=== PATIENT | female | born 1965 | race Caucasian/White ===

== ENCOUNTER 2016-10-04 18:50 | Emergency (ER) | payer BC ==
[2015-08-16 08:29] VITALS: BMI 25.5
[~2016-10-04 18:50] MED LIST: CYMBALTA30 MG PO; LOPRESSOR25 MG PO; OXYCONTIN40 MG PO; SOMA350 MG PO; VITAMIN D31000 UNIT PO; XANAX0.25 MG PO; ZANAFLEX4 MG PO
[2016-10-04 19:48] LABS: APPEARANCE CLEAR (CLEAR); BILIRUBIN NEGATIVE (NEGATIVE); COLOR YELLOW (YELLOW); GLUCOSE 50 mg/dL (NEGATIVE); KETONE NEGATIVE (NEGATIVE); LEUKOCYTE ESTERASE NEGATIVE (NEGATIVE); NITRITE NEGATIVE (NEGATIVE); PROTEIN NEGATIVE (NEGATIVE); UROBILINOGEN NORMAL (NORMAL)
[2016-10-04 19:50] LABS: BASOPHILS 0.1 % (0-2); EOSINOPHILS 0 % (0-7); HEMATOCRIT 41.2 % (36.0-48.0); HEMOGLOBIN 13.5 g/dL (12-16); IMMATURE GRANULOCYTES 0.3 % (0-5); LYMPHOCYTES 6.9 % (15-50); MCH 28.9 pg (26.0-34.0); MCHC 32.8 g/dL (31.0-37.0); MCV 88.2 fL (80.0-100.0); MEAN PLATELET VOLUME 12.4 fL (7.4-10.4); MONOCYTES 3.5 % (2-11); NEUTROPHILS 89.2 % (40-80); PLATELET COUNT 172 10x3/uL (130-400); RBC 4.67 10x6/uL (4.00-5.40); WBC 9.4 10x3/uL (4.8-10.8)
[2016-10-04 20:05] LABS: ALBUMIN 3.5 g/dL (3.4-5.0); ALKALINE PHOSPHATASE 100 U/L (46-116); ALT (SGPT) 16 U/L (10-68); CALC OSMOLALITY 290 mosm/kg (275-300); CALCIUM 9.2 mg/dL (8.5-10.1); CARBON DIOXIDE 26.7 mmol/L (21.0-32.0); CHLORIDE - SERUM 107 mmol/L (98-107); CREATININE - SERUM 0.8 mg/dL (0.6-1.3); POTASSIUM - SERUM 4.3 mmol/L (3.5-5.1); SODIUM 144 mmol/L (136-145); UREA NITROGEN 12 mg/dL (7-18); eGFR NON AFRICAN AMERICAN 80 mL/min (90-120)
[2016-10-04 20:06] LABS: GLUCOSE 169 mg/dL (74-106)
== END 2016-10-04 22:42 | disposition home or self-care (01) ==
LOC: D.ER 18:50
PROVIDERS: Emergency Medicine
DX: K59.00 Constipation, unspecified (principal); M79.7 Fibromyalgia; F17.200 Nicotine dependence, unspecified, uncomplicated

== ENCOUNTER → 2016-11-27 11:03 | Outpatient (CLI) | payer BC ==
[2015-08-16 08:29] VITALS: BMI 25.5
== END | disposition home or self-care (01) ==
LOC: D.US 11:03
DX: R31.9 Hematuria, unspecified (principal)

== ENCOUNTER → 2016-12-20 11:54 | Outpatient (CLI) | payer BC ==
[2015-08-16 08:29] VITALS: BMI 25.5
== END ==
LOC: D.LABREF 11:54
DX: R31.9 Hematuria, unspecified (principal)

== ENCOUNTER → 2017-01-07 16:13 | Outpatient (CLI) | payer BC ==
[2015-08-16 08:29] VITALS: BMI 25.5
== END | disposition home or self-care (01) ==
LOC: D.MRI 01-02 08:30
DX: R20.0 Anesthesia of skin (principal); R20.2 Paresthesia of skin; R26.2 Difficulty in walking, not elsewhere classified

== ENCOUNTER 2017-01-24 05:35 | Day surgery (SDC) | payer BC ==
[2017-01-23 14:59] LABS: HEMATOCRIT 41.6 % (36.0-48.0); HEMOGLOBIN 13.8 g/dL (12-16); MCH 29.5 pg (26.0-34.0); MCHC 33.2 g/dL (31.0-37.0); MCV 88.9 fL (80.0-100.0); MEAN PLATELET VOLUME 11.4 fL (7.4-10.4); RBC 4.68 10x6/uL (4.00-5.40); RDW 13.4 % (11.5-14.5); WBC 6.2 10x3/uL (4.8-10.8)
[~2017-01-24] VITALS: Ht 165.1 cm; Wt 59.9 kg
[~2017-01-24 05:35] MED LIST changes: -LOPRESSOR25 MG PO; +METOPROLOL TART50 MG PO; +NEXIUM40 MG PO; +RELAFEN750 MG PO; +VITAMIN B-1000 MCG/M IM; -ZANAFLEX4 MG PO; +ZANAFLEX6 MG PO
[2017-01-24 08:29] VITALS: BP 101/59; Ht 165.1 cm; Wt 59.9 kg
--- NOTE | 2017-01-24 15:31 | OP ---
PATIENT NAME: MAXIMINO DUGAN MEDICAL RECORD: [id number] :63 LOCATION:[facility] ADMISSION DATE: SURGEON: MERISSA LOPEZ MD DATE OF OPERATION: 01/24/2017 SURGEON: Merissa Lopez MD. ANESTHESIA: MAC by Rosie Laboy CRNA. PREOPERATIVE DIAGNOSES: Interstitial cystitis, fox hematuria. POSTOPERATIVE DIAGNOSES: Interstitial cystitis, fox hematuria. PROCEDURES: Cystoscopy, intravesical Rimso 50% times 50 mL instillation. FINDINGS: Single ureteral orifices bilaterally. No bladder tumors. Diffuse bladder inflammation with glomerulations. ESTIMATED BLOOD LOSS: None. CLINICAL HISTORY: This is a 51-year-old female, who is a smoker. She has had episodes of gross hematuria as well as suprapubic tenderness and pelvic and diffuse body pain, nocturia and dysuria. Urine cultures have shown no growth. She had a recent abdominal and pelvic CT as well as renal ultrasound, which shows normal kidneys. Urine cytology is negative. She comes now to have cystoscopy performed and the bladder inflammation is seen. We will give intravesical Rimso, which is an anti-inflammatory. SHE IS ALLERGIC TO LYRICA, MS CONTIN, NEURONTIN, SAVELLA AND SULFA. She was given Ancef IV business integration manager to the OR. DESCRIPTION OF PROCEDURE: The patient was given IV sedation. She was placed into dorsal lithotomy position and prepped and draped. A 17-Malay cystoscope with 30-degree lens was used for visualization. Cystoscopic findings are as outlined above. The bladder was then emptied through the cystoscope sheath. A 12-Malay red rubber catheter was then inserted into the bladder and through the red rubber catheter, the 50 mL of Rimso solution was instilled into the bladder. The catheter was then removed, leaving the solution in the bladder. The patient will hold the Rimso solution for at least 15 minutes. She will then be able to go home. I will see her next week in the office for her second treatment of Rimso. TRANSINT:[id number] Voice Confirmation ID: [id number] DOCUMENT ID: [id number] MERISSA LOPEZ MD at 1531 CC: [id number] DICTATION DATE: 01/24/17 1404 STAFF COMMAND AND CONTROL OFFICER: 01/24/17 1503 [address] [place] [id number]
--- NOTE | 2017-01-24 16:30 | NUR ---
NOTIFIED DR RIVERA OF DECREASED BP. TO BEDSIDE
--- NOTE | 2017-01-24 17:00 | NUR ---
DISCHARGE INSTRUCTIONS REVIEWED, VERBALIZED UNDERSTANDING. IV DC'D WITH TIP INTACT, NO REDNESS OR SWELLING NOTED TO SITE. DC'D VIA WC WITH FAMILY AND STAFF
== END 2017-01-24 17:00 | disposition home or self-care (01) ==
LOC: D.OPS 05:35 → D.PAN 09:30 → D.OPS 09:30 → D.PAN 11:20 → D.OPS 17:00
PROVIDERS: Anesthesiology
DX: R31.0 Gross hematuria (principal); N30.10 Interstitial cystitis (chronic) without hematuria; F17.200 Nicotine dependence, unspecified, uncomplicated; I10 Essential (primary) hypertension; K21.9 Gastro-esophageal reflux disease without esophagitis; I49.9 Cardiac arrhythmia, unspecified; Z01.812 Encounter for preprocedural laboratory examination

== ENCOUNTER → 2017-01-30 17:48 | Outpatient (CLI) | payer BC ==
[2017-01-24 08:29] VITALS: BMI 22.0
== END | disposition home or self-care (01) ==
LOC: D.LAB 17:48
DX: N39.0 Urinary tract infection, site not specified (principal)

== ENCOUNTER → 2017-04-23 13:00 | Outpatient (CLI) | payer BC ==
[2017-01-24 08:29] VITALS: BMI 22.0
== END | disposition home or self-care (01) ==
LOC: D.MAMMO 13:00
DX: Z12.31 Encounter for screening mammogram for malignant neoplasm of breast (principal)

== ENCOUNTER → 2017-07-03 09:53 | Outpatient (CLI) | payer BC ==
[2017-01-24 08:29] VITALS: BMI 22.0
== END | disposition home or self-care (01) ==
LOC: D.MRI 09:53
DX: M54.16 Radiculopathy, lumbar region (principal)

== ENCOUNTER → 2018-01-01 07:58 | Outpatient (CLI) | payer BC ==
[2017-01-24 08:29] VITALS: BMI 22.0
== END | disposition home or self-care (01) ==
LOC: D.MRI 07:58
DX: M54.2 Cervicalgia (principal)

== ENCOUNTER → 2018-12-02 07:38 | Outpatient (CLI) | payer BC ==
[2017-01-24 08:29] VITALS: BMI 22.0
== END | disposition home or self-care (01) ==
LOC: D.MRI 07:38
PROVIDERS: ATTEND Orthopaedic Surgery
DX: S43.432D Superior glenoid labrum lesion of left shoulder, subsequent encounter (principal)

== ENCOUNTER 2018-12-16 07:20 | Day surgery (SDC) | payer BC ==
[~2018-12-16] VITALS: Ht 165.1 cm; Wt 59.0 kg
[2018-12-16 07:39] LABS: HEMATOCRIT 43.2 % (36.0-48.0); HEMOGLOBIN 14.6 g/dL (12-16); MCH 29.9 pg (26.0-34.0); MCHC 33.8 g/dL (31.0-37.0); MCV 88.3 fL (80.0-100.0); MEAN PLATELET VOLUME 11.1 fL (7.4-10.4); RBC 4.89 10x6/uL (4.00-5.40); RDW 13.3 % (11.5-14.5); WBC 6.1 10x3/uL (4.8-10.8)
[2018-12-16] MEDS ORDERED: PRISTIQ50 MG PO (08:10)
[2018-12-16] MEDS ORDERED: SYMBICORT 16010.2 GM INH (08:10)
[2018-12-16] MEDS ORDERED: XANAX0.5 MG PO (08:11)
[2018-12-16] MEDS ORDERED: OXYCONTIN30 MG PO (08:12)
[2018-12-16 08:21] VITALS: BP 117/71; Ht 165.1 cm; Wt 59.0 kg
[2018-12-16] MEDS ORDERED: DILAUDID4 MG PO (13:57)
[2018-12-16] MEDS ORDERED: VISTARIL50 MG PO (13:57)
--- NOTE | 2018-12-16 14:28 | NUR ---
1425 REPORT TO [place] YATES R.N.. IV DC'ED WITH 400ML LTC. [place] YAP R.N.
--- NOTE | 2018-12-16 14:40 | NUR ---
PT DC INSTRUCTIONS REVIEWED AT THIS TIME, PT IV REMOVED AT THIS TIME, INTACT, NO REDNESS OR SWELLING NOTED AT SITE.
--- NOTE | 2018-12-16 14:45 | NUR ---
PT LEAVING OPS AT THIS TIME VIA WC. NAD NOTED.
--- NOTE | 2018-12-17 07:12 | OP ---
PATIENT NAME: MAXIMINO RIDDLE MEDICAL RECORD: [id number] :63 LOCATION:[facility] ADMISSION DATE: SURGEON: DONNY GRIGSBY DO DATE OF OPERATION: 12/16/2018 PROCEDURES PERFORMED: Left shoulder arthroscopy with rotator cuff repair, subacromial decompression, distal clavicle excision, labral debridement, and bicep tenodesis. PREOPERATIVE DIAGNOSES: Left shoulder supraspinatus calcific tendinitis, labral tear, SLAP tear, AC joint arthritis, and subacromial impingement. POSTOPERATIVE DIAGNOSES: Left shoulder supraspinatus calcific tendinitis, labral tear, SLAP tear, AC joint arthritis, and subacromial impingement. INDICATIONS: Ms. 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 She has tried injections and therapy to no avail. She is tired of dealing with pain and weakness. I told her that I would get in there and take out the calcification and then, if they were big enough, I will have to repair the rotator cuff tear and she was okay with that as well as SLAP tear seen on MRI. I will do biceps tenodesis, subacromial decompression, and distal clavicle excision. She is okay with that. She is aware of the risks including infection, bleeding, damage to nerves and vessels, need for further surgery, blood clots, and even . The patient signed consent. SURGEON: Donny Grigsby DO DESCRIPTION OF PROCEDURE: The patient received a block by anesthesia in the preoperative area. She was taken to the operative suite and laid in the right lateral decubitus position with the left shoulder up. Her left shoulder was then prepped and draped in a sterile fashion. The time-out was performed and everyone was in agreement with correct side, site, patient, and procedure. The patient had been sedated and LMA was placed. She was given 900 mg of clindamycin preoperatively. Once that was done, time-out had been performed and procedure was began with inflating the joint with 60 mL of normal saline through the posterior portal. Posterior portal was then established with 11 blade scalpel and trocar was entered in the shoulder joint. The anterior portal was then established with an 18-gauge spinal needle and 11 blade scalpel. The SLAP tear was seen. A bicep tenotomy was done at that time and had labral debridement. The supraspinatus tendon was seen to be partially torn on the articular side. The subscapularis tendon was in good shape and the cartilage looked good as well. The scope was then switched to the subacromial space. Lateral portal was established with an 18-gauge spinal needle and 11 blade scalpel. The subacromial decompression was done with acromioplasty as well as distal clavicle excision. The hardened nodule noted in the rotator cuff tendon was marked and then the scope was removed over the lateral incision. Careful dissection was made down to the rotator cuff. Most of the calcification was removed from the tendon. This did cause a tear and a single anchor was used to repair it with single medial row and 2 lateral rows. The Regeneten graft was then placed on top of that and placed with medial holly and lateral holly into the bone. Attention was then drawn to the anterior humerus. An incision was made on the anterior left humerus and careful dissection was made down to dissect out the long head of the biceps tendon had been previously cut. It was whipstitched and a unicortical hole was made into the humerus. Once this was OPERATIVE REPORT [id number] MAXIMINO RIDDLE done, the button was placed in there and the tendon was cinched down and tied and then a free needle was used to go back through the tendon. This was tied down. The excess tendon and suture were then cut. The sites were all thoroughly irrigated. The tenodesis and rotator cuff repair sites were closed with 2-0 Vicryl in inverted interrupted fashion and 4-0 Monocryl ran on the skin. The 2 portal sites, anterior and posterior, were closed with 4-0 Monocryl in inverted interrupted fashion and Dermabond glue was placed on all the incisions. Telfa and Tegaderm were then placed on them. She was awakened and taken to recovery in stable condition. She was placed in a sling. BLOOD LOSS: Minimal. COMPLICATIONS: None. TRANSINT:[id number] Voice Confirmation ID: [id number] DOCUMENT ID: [id number] DONNY GRIGSBY DO at 0712 CC: [id number] DICTATION DATE: 12/16/18 160 HANDY WORKER: 12/16/181913 [facility] 12/16/18 [facility] [address] [phone]
== END 2018-12-16 14:45 | disposition home or self-care (01) ==
LOC: D.OPS 07:20 → D.PAN 09:15 → D.OPS 09:15 → D.PAN 12:00 → D.OPS 14:45
PROVIDERS: Anesthesiology; ATTEND Orthopaedic Surgery
DX: M75.32 Calcific tendinitis of left shoulder (principal); M75.102 Unspecified rotator cuff tear or rupture of left shoulder, not specified as traumatic; S43.432A Superior glenoid labrum lesion of left shoulder, initial encounter; M13.812 Other specified arthritis, left shoulder; M75.42 Impingement syndrome of left shoulder; X58.XXXA Exposure to other specified factors, initial encounter; Z01.812 Encounter for preprocedural laboratory examination

== ENCOUNTER 2019-07-24 10:00 | Outpatient (CLI) | payer BC ==
[2018-12-16 08:21] VITALS: BMI 21.6
[~2019-07-24 10:00] MED LIST changes: +DILAUDID4 MG PO; +OXYCONTIN30 MG PO; +PRISTIQ50 MG PO; +SYMBICORT 16010.2 GM INH; +VISTARIL50 MG PO; +XANAX0.5 MG PO
== END 2019-07-24 11:00 | disposition home or self-care (01) ==
LOC: D.MAMMO 10:00
PROVIDERS: ATTEND Family Medicine
DX: Z12.31 Encounter for screening mammogram for malignant neoplasm of breast (principal)

== ENCOUNTER 2019-10-01 08:59 | Emergency (ER) | payer BC ==
[~2019-10-01] VITALS: Ht 165.1 cm; Wt 61.4 kg
[2019-10-01 09:06] VITALS: Ht 165.1 cm; Wt 61.4 kg
[2019-10-01] MEDS ORDERED: XTAMPZA PO (09:10)
[2019-10-01] MEDS ORDERED: CYMBALTA60 MG PO (09:11)
[2019-10-01] MEDS ORDERED: BUSPAR5 MG PO (09:11)
[2019-10-01] MEDS ORDERED: PERCOCET 10-321 EAC1 PO (09:11)
[2019-10-01 09:53] LABS: CALC OSMOLALITY 278 mosm/kg (275-300); CALCIUM 9.2 mg/dL (8.5-10.1); CARBON DIOXIDE 28.7 mmol/L (21.0-32.0); CHLORIDE - SERUM 105 mmol/L (98-107); CREATININE - SERUM 0.8 mg/dL (0.6-1.3); SODIUM 140 mmol/L (136-145); UREA NITROGEN 12 mg/dL (7-18); eGFR NON AFRICAN AMERICAN 79 mL/min (90-120)
[2019-10-01 09:54] LABS: GLUCOSE 100 mg/dL (74-106)
[2019-10-01 09:55] LABS: BASOPHILS 1.6 % (0-2); EOSINOPHILS 2.2 % (0-7); HEMATOCRIT 44.2 % (36.0-48.0); HEMOGLOBIN 14.3 g/dL (12-16); IMMATURE GRANULOCYTES 0.2 % (0-5); LYMPHOCYTES 25.9 % (15-50); MCH 29.2 pg (26.0-34.0); MCHC 32.4 g/dL (31.0-37.0); MCV 90.2 fL (80.0-100.0); MONOCYTES 6.6 % (2-11); NEUTROPHILS 63.5 % (40-80); PLATELET COUNT 194 10x3/uL (130-400); RDW 14.2 % (11.5-14.5); WBC 6.4 10x3/uL (4.8-10.8)
[2019-10-01 10:00] LABS: APTT 26.8 SECONDS (22.8-39.4); INR 0.85 (0.85-1.17); PROTIME 11.6 SECONDS (11.6-15.0)
[2019-10-01 10:09] LABS: ALBUMIN 3.9 g/dL (3.4-5.0); ALKALINE PHOSPHATASE 98 U/L (30-120); ALT (SGPT) 16 U/L (10-68); BILIRUBIN - TOTAL 0.36 mg/dL (0.2-1.3); CKMB 1.3 U/L (0.0-3.6); CREATINE KINASE 73 UL (21-215); MAGNESIUM - SERUM 2.2 mg/dL (1.8-2.4); PROTEIN - SERUM 7.6 g/dL (6.4-8.2); TROPONIN-I < 0.017 ng/mL (0.000-0.060)
[2019-10-01 10:50] LABS: BACTERIA MODERATE /hpf (NEGATIVE); BILIRUBIN NEGATIVE (NEGATIVE); CALCIUM OXALATE CRYSTALS 0-5 /hpf (NONE SEEN); EPITHELIAL CELLS 0-5 /hpf (0-5); GLUCOSE NEGATIVE (NEGATIVE); KETONE NEGATIVE (NEGATIVE); NITRITE NEGATIVE (NEGATIVE); RED CELLS - URINE 0-5 /hpf (0-5); UROBILINOGEN NORMAL (NORMAL); WHITE CELLS - URINE RARE /hpf (NEGATIVE)
[2019-10-01 11:44] VITALS: BP 126/84
== END 2019-10-01 11:53 | disposition home or self-care (01) ==
LOC: D.ER 08:59
PROVIDERS: Family Medicine
DX: R42 Dizziness and giddiness (principal); R00.2 Palpitations

== ENCOUNTER → 2020-01-06 12:32 | Outpatient (CLI) | payer BC ==
[2019-10-01 09:06] VITALS: BMI 22.5
[~2020-01-06 12:32] MED LIST changes: +BUSPAR5 MG PO; +CYMBALTA60 MG PO; +PERCOCET 10-321 EAC1 PO; +XTAMPZA PO
[2020-01-06 13:43] LABS: BASOPHILS 1.1 % (0-2); EOSINOPHILS 3.9 % (0-7); HEMATOCRIT 43.5 % (36.0-48.0); LYMPHOCYTES 35.9 % (15-50); MCH 28.9 pg (26.0-34.0); MCHC 32.2 g/dL (31.0-37.0); MCV 89.9 fL (80.0-100.0); MONOCYTES 6.9 % (2-11); NEUTROPHILS 52.2 % (40-80); PLATELET COUNT 181 10x3/uL (130-400); RBC 4.84 10x6/uL (4.00-5.40); RDW 13.3 % (11.5-14.5); WBC 5.7 10x3/uL (4.8-10.8)
[2020-01-06 13:50] LABS: ANION GAP 7.5 mmol/L (8-16); CALCIUM 9.5 mg/dL (8.5-10.1); CARBON DIOXIDE 31.2 mmol/L (21.0-32.0); POTASSIUM - SERUM 3.7 mmol/L (3.5-5.1); UDS - AMPHET NEGATIVE QUAL (NEGATIVE); UDS - BARB NEGATIVE QUAL (NEGATIVE); UDS - BENZO NEGATIVE QUAL (NEGATIVE); UDS - COCAINE NEGATIVE QUAL (NEGATIVE); UDS - OPIATE POSITIVE QUAL (NEGATIVE); UDS - PCP NEGATIVE QUAL (NEGATIVE); UDS - THC NEGATIVE QUAL (NEGATIVE)
[2020-01-06 14:01] LABS: INR 0.88 (0.85-1.17); PROTIME 11.9 SECONDS (11.6-15.0)
== END | disposition home or self-care (01) ==
LOC: D.LAB 12:32
PROVIDERS: ATTEND Specialist
DX: Z01.812 Encounter for preprocedural laboratory examination (principal); I10 Essential (primary) hypertension; T14.8XXA Other injury of unspecified body region, initial encounter; Z79.01 Long term (current) use of anticoagulants

== ENCOUNTER → 2020-08-18 18:21 | Outpatient (CLI) | payer BC ==
[2019-10-01 09:06] VITALS: BMI 22.5
== END | disposition home or self-care (01) ==
LOC: D.MAMMO 08-11 15:15
PROVIDERS: ATTEND Family Medicine
DX: Z12.31 Encounter for screening mammogram for malignant neoplasm of breast (principal)